=== PATIENT | male | born 1960 | race African-American/Black ===

== ENCOUNTER 2020-06-01 20:40 | Emergency (ER) | payer OTHER ==
[~2020-06-01] VITALS: Ht 177.8 cm; Wt 70.0 kg
[2020-06-01] MEDS ORDERED: SODIUM CHLORIDE 0.9% 1,000 ML IV ONE (22:45)
[2020-06-01] MEDS ORDERED: MORPHINE SULFATE 4 MG/ML CPJ (NOT FOR IM USE) IV ONE (22:45)
[2020-06-01 23:17] LABS: BASOPHILS % 0.7 % (0.0-2.0); HEMATOCRIT. 37.7 % (42.0-52.0); HEMOGLOBIN. 13.3 g/dL (14.0-18.0); LYMPHOCYTES % 26.7 % (20.0-50.0); MEAN CORPUSCULAR HEMOGLOBIN 34.7 pg (28.0-32.0); MEAN CORPUSCULAR VOLUME 98.2 fL (80.0-94.0); MEAN PLATELET VOLUME 7.5 fl (7.4-10.4); MONOCYTES % 4.3 % (2.0-8.0); NEUTROPHILS % 67.3 % (40.0-76.0); PLATELET 358 x1000/uL (130-400); RED BLOOD CELL COUNT 3.84 mill/uL (4.7-6.1); RED CELL DISTRIBUTION WIDTH 14.9 % (11.6-14.6)
[2020-06-01 23:23] LABS: CHLORIDE 100 mEq/L (98-107)
[2020-06-01 23:31] LABS: PROTHROMBIN TIME 10.9 sec (9.6-11.0)
[2020-06-02] MEDS ORDERED: ONDANSETRON HCL 4MG/2ML INJ IV ONE (00:45)
[2020-06-02] MEDS ORDERED: IOHEXOL-300 100 ML BOTTLE ONE (01:12)
[2020-06-02] MEDS ORDERED: MAGNESIUM/ALUMINUM HYDROXIDE/SIMETHICONE 30ML UDC PO SCH (01:15)
[2020-06-02] MEDS ORDERED: VISCOUS LIDOCAINE 2% 15 ML UDC PO SCH (01:15)
[2020-06-02 03:01] VITALS: BP 134/84
[2020-06-02] MEDS ORDERED: OMEP40CA12 MT (03:06)
== END 2020-06-02 03:38 | disposition home or self-care (01) ==
LOC: ER 20:40
DX: K29.70 Gastritis, unspecified, without bleeding (principal); R11.2 Nausea with vomiting, unspecified; E11.9 Type 2 diabetes mellitus without complications; R10.11 Right upper quadrant pain
CPT/HCPCS: 36415; 74177; 76705; 80053; 83605; 83690; 84484; 85025; 85610; 93005; 96361; 96374; 96375; 99285; J2270; J2405; J7030; Q9967

== ENCOUNTER 2022-09-15 16:30 | Emergency (ER) | payer OTHER ==
[~2022-09-15] VITALS: Ht 177.8 cm; Wt 75.0 kg
[~2022-09-15 16:30] MED LIST: OMEP40CA20 MT
[2022-09-15 16:57] VITALS: TEMP 98.6; O2SAT 100
[2022-09-15 17:31] LABS: CHLORIDE 107 mEq/L (98-107); INDEX HEMOLYSI 1 (1-3); INDEX ICTERIC 1 (1-4); INDEX LIPEMIC 1 (1-3); POTASSIUM 4.1 mEq/L (3.5-5.1); SODIUM 140 mEq/L (136-145)
[2022-09-15 17:32] LABS: BASOPHILS % 0.6 % (0.0-2.0); EOSINOPHILS % 2.1 % (0.0-5.0); HEMOGLOBIN. 10.8 g/dL (14.0-18.0); MEAN CORPUSCULAR HEMOGLOBIN 29.2 pg (28.0-32.0); MEAN CORPUSCULAR HGB CONC 33.6 g/dL (31.0-37.0); MEAN PLATELET VOLUME 8.2 fl (7.4-10.4); MONOCYTES % 5.6 % (2.0-8.0); NEUTROPHILS % 63.7 % (40.0-76.0); PLATELET 295 x1000/uL (130-400); RED BLOOD CELL COUNT 3.68 mill/uL (4.7-6.1); RED CELL DISTRIBUTION WIDTH 15.2 % (11.6-14.6); WHITE BLOOD COUNT 7.9 x1000/uL (4.5-11.0)
[2022-09-15 17:39] LABS: ALANINE AMINOTRANSFERASE 16 IU/L (13-61); ALBUMIN 4.2 g/dL (3.4-5.0); ASPARTATE AMINOTRANSFERASE 15 IU/L (15-37); BILIRUBIN TOTAL 0.6 mg/dL (0.1-1.0); CALCIUM 9.5 mg/dL (8.5-10.1); CARBON DIOXIDE 28 mEq/L (21-32); CREATININE 1.2 mg/dL (0.6-1.3); GLUCOSE 122 mg/dL (70-105); PROTEIN TOTAL 7.9 g/dL (6.0-8.3); UREA NITROGEN BLOOD 10 mg/dL (7-21)
[2022-09-15 23:30] VITALS: BP 109/74; PULSE 82; RESP 18
[2022-09-15] MEDS ORDERED: MAGNESIUM/ALUMINUM HYDROXIDE/SIMETHICONE 30ML UDC PO ONE (23:30)
[2022-09-15] MEDS ORDERED: KETOROLAC 30MG/ML VIAL IM ONE (23:30)
[2022-09-15] MEDS ORDERED: FAMOTIDINE 20MG TABLET PO ONE (23:30)
[2022-09-16] MEDS ORDERED: FAMO-135 MT (02:40)
[2022-09-16] MEDS ORDERED: ONDANSETRON 4MG ODT PO ONE (03:00)
[2022-09-16] MEDS ORDERED: MAGNESIUM/ALUMINUM HYDROXIDE/SIMETHICONE 30ML UDC PO NR (04:00)
[2022-09-16] MEDS ORDERED: KETOROLAC 30MG/ML VIAL IM NR (04:00)
[2022-09-16] MEDS ORDERED: FAMOTIDINE 20MG TABLET PO NR (04:00)
== END 2022-09-16 03:49 | disposition home or self-care (01) ==
LOC: ER 16:30
DX: K29.70 Gastritis, unspecified, without bleeding (principal); E11.9 Type 2 diabetes mellitus without complications; Z87.19 Personal history of other diseases of the digestive system
CPT/HCPCS: 99285; 80053; 83690; 85025; 36415; 96372; 74176; Q0162